=== PATIENT | female | born 1985 | race Two or more races ===

== ENCOUNTER 2019-07-05 13:04 | Emergency (ER) | payer OTHER ==
--- NOTE | 2019-07-05 13:57 | EDM.PDOC ---
ED HPI GENERAL MEDICAL PROBLEM - General Chief Complaint: Genitourinary Problem Stated Complaint: POSS UTI Time Seen by Provider: 07/05/19 13:33 Source of Information: Reports: Patient History Limitations: Reports: No Limitations - History of Present Illness INITIAL COMMENTS - FREE TEXT/NARRATIVE: Magdy is a 33-year-old female who presents today for possible UTI. Reports that her symptoms started yesterday. Reports urinary frequency, pressure, dysuria and cloudy urine. She has been treating her discomfort with Motrin. She denies any fevers, chills, nausea, vomiting, back or flank pain. States that she gets 1-2 urinary tract infections a year. Last menstrual period ended about 2 days ago. Lower Abdomen Pain Score (Numeric/FACES): 3 - Related Data Allergies Allergy/AdvReac Type Severity Reaction Status Date / Time unknown antibiotic Allergy Rash Uncoded 07/05/19 13:29 Home Meds: Home Meds Nitrofurantoin Monohyd/M-Cryst [Macrobid 100 mg Capsule] 100 mg PO BID #10 capsule 07/05/19 [Rx] Past Medical History - Past Surgical History GI Surgical History: Reports: Cholecystectomy Social & Family History - Tobacco Use Smoking Status *Q: Never Smoker Second Hand Smoke Exposure: No - Caffeine Use Caffeine Use: Reports: None - Recreational Drug Use Recreational Drug Use: No ED ROS GENERAL - Review of Systems Review Of Systems: See Below Constitutional: Denies: Fever, Chills GI/Abdominal: Denies: Abdominal Pain, Nausea, Vomiting : Reports: Dysuria, Frequency, Urgency. Denies: Flank Pain Musculoskeletal: Denies: Back Pain ED EXAM, RENAL/ - Physical Exam Exam: See Below Exam Limited By: No Limitations General Appearance: Alert, WD/WN, No Apparent Distress Respiratory/Chest: No Respiratory Distress, Lungs Clear Cardiovascular: Normal Peripheral Pulses, Regular Rate, Rhythm, No Murmur Back Exam: No: CVA Tenderness (L), CVA Tenderness (R) Neurological: Alert, Oriented, Normal Cognition Psychiatric: Normal Affect, Normal Mood Skin Exam: Warm, Dry, Normal Color Course - Vital Signs Last Recorded V/S: Last Vital Signs Temp 97.5 F 07/05/19 13:25 Pulse 80 07/05/19 13:25 Resp 16 07/05/19 13:25 BP 125/89 01/04/20 13:25 Pulse Ox 97 07/05/19 13:25 - Orders/Labs/Meds Orders: Active Orders 24 hr Category Date Time Status CULTURE URINE [RM] Stat Lab 07/05/19 13:30 Received Labs: Laboratory Tests 07/05/19 Range/Units 13:30 Urine Color Yellow (Yellow) Urine Appearance Slt cloudy H (Clear) Urine pH 6.5 (5.0-8.0) Ur Specific [place] > or = 1.030 (1.005-1.030) Urine Protein 1+ H (Negative) Urine Glucose (UA) Negative (Negative) Urine Ketones Trace H (Negative) Urine Occult Blood 3+ H (Negative) Urine Nitrite Negative (Negative) Urine Bilirubin Negative (Negative) Urine Urobilinogen 1.0 (0.2-1.0) Ur Leukocyte Esterase 1+ H (Negative) Urine RBC 30-40 H (0-5) /hpf Urine WBC 10-20 H (0-5) /hpf Ur Squamous Epith Cells 10-20 H (0-5) /hpf Urine Bacteria Few (FEW) /hpf Urine Mucus Moderate H (FEW) /hpf - Re-Assessments/Exams Free Text/Narrative Re-Assessment/Exam: 07/05/19 13:52 UA consistent with UTI. Placed on macrobid. Urine sent for culture. Discharge instructions as documented. 07/05/19 15:03 [facility] pharmacy called. Patient had allergy to macrobid. Will prescribe cephalexin 500mg bid x 7 days. Departure - Departure Time of Disposition: 13:55 Disposition: Home, Self-Care 01 Condition: Good Clinical Impression: UTI, Urinary tract infectious disease - Discharge Information *PRESCRIPTION DRUG MONITORING PROGRAM REVIEWED*: No *COPY OF PRESCRIPTION DRUG MONITORING REPORT IN PATIENT MARGARET: No Prescriptions: Nitrofurantoin Monohyd/M-Cryst [Macrobid 100 mg Capsule] 100 mg PO BID #10 capsule Instructions: Urinary Tract Infection, Adult Referrals: PCP,Not In Area [Primary Care Provider] - Forms: ED Department Discharge Additional Instructions: Make sure you are drinking plenty of fluids. Take the Macrobid as prescribed. 1 tab twice a day for 5 days. continue taking your [id number] Azo that you have. Follow-up with family medicine if not much better in 5-7 days. Please return to the ER if your symptoms change or worsen. Sepsis Event Note - Evaluation Sepsis Screening Result: No Definite Risk - Focused Exam Vital Signs: Vital Signs Temp Pulse Resp BP Pulse Ox 07/05/19 13:25 97.5 F 80 16 125/89 97 Date Exam was Performed: 07/05/19 Time Exam was Performed: 15:03 - My Orders Last 24 Hours: My Active Orders 07/05/19 13:30 CULTURE URINE [RM] Stat - Assessment/Plan Last 24 Hours: My Active Orders 07/05/19 13:30 CULTURE URINE [RM] Stat
== END 2019-07-05 14:23 | disposition home or self-care (01) ==
LOC: JD.ED 13:04
DX: N39.0 Urinary tract infection, site not specified (principal)
CPT/HCPCS: 81001; 87086; 87088; 99282; 99283